=== PATIENT | male | born 1940 | race Caucasian/White ===

== ENCOUNTER → 2020-09-01 09:48 | Outpatient (BNVA) | payer MEDICARE, SELFPAY | PROVIDERS: PCP Internal Medicine; Referring Provider Internal Medicine; Visit Provider Internal Medicine | DX: I63.40 Cerebral infarction due to embolism of unspecified cerebral artery (principal); I25.10 Atherosclerotic heart disease of native coronary artery without angina pectoris; I10 Essential (primary) hypertension; E78.5 Hyperlipidemia, unspecified; Z87.891 Personal history of nicotine dependence; Z79.82 Long term (current) use of aspirin; Z79.899 Other long term (current) drug therapy | CPT/HCPCS: 93005; 99202 ==

== ENCOUNTER → 2020-09-22 13:08 | Outpatient (REF) | payer MEDICARE, SELFPAY ==
--- NOTE | 2020-09-22 13:04 | HM_ITS ---
PROCEDURE PERFORMED: Cardiac event monitoring for 30 days. INDICATION: Cerebral infarction. REQUESTING PHYSICIAN: Dr. Barajas. FINDINGS: In the monitoring period of 30 days between 09/22/2020 to 10/22/2020, the underlying rhythm was sinus. Baseline heart rate was 70 beats per minute and normal sinus rhythm. There is very rare atrial ectopy - only a couple over 30 days, but otherwise, no atrial arrhythmias. No evidence of any atrial fibrillation. CONCLUSION: This study shows underlying sinus rhythm only and does not show any atrial fibrillation or flutter. Juan David Barajas MD HS/MODL / [id number]
== END ==
LOC: HO.CARD 13:08
PROVIDERS: PCP Internal Medicine; Visit Provider Internal Medicine
DX: I63.9 Cerebral infarction, unspecified (principal)
CPT/HCPCS: 93270

== ENCOUNTER → 2020-10-29 12:41 | Outpatient (BNVA) | payer MEDICARE, SELFPAY | PROVIDERS: PCP Internal Medicine; Visit Provider Internal Medicine | DX: I63.40 Cerebral infarction due to embolism of unspecified cerebral artery (principal); I25.10 Atherosclerotic heart disease of native coronary artery without angina pectoris; I10 Essential (primary) hypertension; E78.5 Hyperlipidemia, unspecified | CPT/HCPCS: 99212 ==

== ENCOUNTER → 2021-01-25 14:10 | Outpatient (BNVA) | payer MEDICARE, SELFPAY | PROVIDERS: PCP Internal Medicine; Visit Provider Internal Medicine | DX: I63.40 Cerebral infarction due to embolism of unspecified cerebral artery (principal); I25.10 Atherosclerotic heart disease of native coronary artery without angina pectoris; I10 Essential (primary) hypertension; E78.5 Hyperlipidemia, unspecified | CPT/HCPCS: 99212 ==

== ENCOUNTER 2021-05-25 14:10 | Outpatient (REF) | payer MEDICARE, SELFPAY ==
--- NOTE | ~2021-05-25 | CT_ITS ---
CT ANGIOGRAM NECK CLINICAL INFORMATION: Transient Monocular blindness. COMPARISON: None available. TECHNIQUE: Test bolus sequences followed by intravenous administration 70 mL of Omnipaque 350. Helical imaging was performed in the axial plane from the thoracic inlet to the skull vertex. Delayed postcontrast imaging of the head was also performed. The data was processed at the rad technologist workstation for generation of MIP sequences. Angled MIPs and volume rendered reformatted images were also generated at an offline 3D workstation under concurrent supervision. Stenoses are assessed in accordance with NASCET criteria unless otherwise indicated. This CT examination was performed using dose optimization techniques as appropriate, variously including the following: *Automated exposure control *Adjustment of mA and/or kV according to patient size (this includes techniques or standardized protocols for targeted exams where dose is matched to indication/reason for exam; i.e. extremities or head) *Use of iterative reconstruction technique FINDINGS: BRAIN: There is a chronic infarct involving the right frontal lobe and right basal ganglia and the right MCA territory. There are chronic bilateral cerebellar infarcts. No definite superimposed acute infarcts. [There is no intracranial hemorrhage, hydrocephalus, extra-axial surface collection, midline shift, or other herniation pattern. Nice to white matter differentiation is diffusely maintained without evidence of an evolved acute territorial infarct. The basilar cisterns are preserved. No significant soft tissue abnormality. No acute osseous abnormality. The paranasal sinuses and the mastoid air cells are well aerated.] CERVICAL SOFT TISSUES AND LUNG APICES: There is multilevel cervical spondylosis. Imaged upper lungs are clear. No significant soft tissue findings within the neck. NECK CTA: [There is a classic 3 vessel configuration of the aortic arch. Proximal arch vessels are non-stenotic. Left vertebral artery is dominant. No significant ostial stenosis is visualized on either side. Both vertebral arteries are widely patent throughout their extracranial cervical course. Both common carotid arteries are normal in course and caliber.] Atherosclerotic calcification involving the carotid bifurcations bilaterally resulting in less than 50% stenoses of the proximal internal carotid arteries on both sides. BRAIN CTA: Atherosclerotic calcification throughout the carotid siphons bilaterally without significant stenosis. No focal flow-limiting stenosis nor discrete proximal large artery occlusion. No aneurysm. Timing of the contrast bolus allows assessment of the major dural venous sinuses, which all opacify normally] CT/CT angio head neck IMPRESSION: - No acute intracranial findings. Chronic right MCA territory infarct and chronic bilateral cerebellar infarcts. - No significant arterial stenoses and no acute arterial occlusions within the head or neck.
[2021-05-25] MEDS: iohexoL 350 MG/ML 100 ML INFUS..BTL IV (15:13)
== END 2021-05-25 14:11 | disposition home or self-care (01) ==
LOC: HO.CT 14:10
PROVIDERS: PCP Internal Medicine; Visit Provider Psychiatry & Neurology Neurology
DX: H53.129 Transient visual loss, unspecified eye (principal)
CPT/HCPCS: 70496; 70498; Q9967

== ENCOUNTER → 2021-07-28 13:58 | Outpatient (BNVA) | payer MEDICARE, SELFPAY | PROVIDERS: PCP Internal Medicine; Visit Provider Internal Medicine | DX: I63.40 Cerebral infarction due to embolism of unspecified cerebral artery (principal); I25.10 Atherosclerotic heart disease of native coronary artery without angina pectoris; I10 Essential (primary) hypertension; E78.5 Hyperlipidemia, unspecified | CPT/HCPCS: 99212 ==

== ENCOUNTER → 2022-01-12 13:55 | Outpatient (BNVA) | payer MEDICARE, SELFPAY | PROVIDERS: PCP Internal Medicine; Visit Provider Internal Medicine | DX: I63.40 Cerebral infarction due to embolism of unspecified cerebral artery (principal); I25.10 Atherosclerotic heart disease of native coronary artery without angina pectoris; I10 Essential (primary) hypertension; E78.5 Hyperlipidemia, unspecified | CPT/HCPCS: 93005; 99212 ==

== ENCOUNTER → 2023-02-23 13:27 | Outpatient (BNVA) | payer MEDICARE, SELFPAY | PROVIDERS: PCP Internal Medicine; Referring Provider Internal Medicine; Visit Provider Internal Medicine | DX: I63.40 Cerebral infarction due to embolism of unspecified cerebral artery (principal); I25.10 Atherosclerotic heart disease of native coronary artery without angina pectoris; I10 Essential (primary) hypertension; E78.5 Hyperlipidemia, unspecified | CPT/HCPCS: 93005; 99212 ==

== ENCOUNTER 2024-02-22 13:36 | Outpatient (AMB) | payer MEDICARE, SELFPAY ==
[2024-02-22 13:43] VITALS: BP 130/70; PULSE 61; BMI 21.4
--- NOTE | 2024-02-22 13:43 | MHC.OFFVIS ---
Vital Signs 02/22/24 13:43 Height 6 ft 1 in Weight 162 lb 4.163 oz BMI 21.4 BP 130/70 Blood Pressure Location Lt brachial Position Sitting Pulse 61 Intake Visit Reasons: 1 yr f/up Body Care Manager Required: No Accompanied by: Daughter Allergies No Known Allergies Allergy (Verified 02/23/23 13:35) Medication List - Last Reconciled 02/22/24 by Juan David Barajas MD amitriptyline 50 mg PO BEDTIME apixaban (Eliquis) 5 mg PO BID atorvastatin 80 mg PO DAILY cholecalciferol (vitamin D3) 50 mcg PO DAILY fenofibrate 160 mg PO DAILY finasteride 5 mg PO DAILY fcammhuwxkt-naxpgnowz-awxsnizu 100-62.5-25 mcg inhalation levalbuterol tartrate 45 mcg/actuation 2 puffs PO Q6H PRN metoprolol succinate ER 50 mg PO DAILY nitroglycerin 0.4 mg sublingual Q5M PRN HPI Comments Details: Ryan returns for follow-up. 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 He also has a history of coronary disease. In 2009, he underwent cardiac catheterization stenting of RCA with bare metal stent. In 2010, drug-eluting stents to LAD. He has been essentially free of angina for a long time. In 2019, he was admitted to [facility] with complaints of left-sided weakness when he was working on a ladder. Subsequently taken to [facility] where he was diagnosed to have a stroke with middle cerebral artery infarction. Mostly recovered from that. There is also a remote history of TIA with right-sided weakness that happened many years ago prior to this stroke. Then he was referred to us for evaluation of cardioembolic sources of stroke. After long discussion, he was put on anticoagulation that he is tolerating well. Since last seen, no new issues. No concerns. No cardiac symptoms whatsoever. 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 Mother No problems noted. Social History Alcohol intake: current Alcohol intake frequency: a few times a month Patient Tobacco Use Status: Former Tobacco user Quit Date: 1989 Review of Systems Const Denies chills, Denies fatigue, Denies fever(s), Denies frequent falls, Denies weakness, Denies weight gain and Denies weight loss ENT Denies dizziness Card Denies chest pain, Denies leg edema, Denies lightheadedness, Denies palpitations, Denies dyspnea and Denies dyspnea on exertion Resp Denies cough, Denies dyspnea and Denies dyspnea on exertion GI Denies hematochezia Musc Denies abnormal gait, Denies muscle weakness, Denies numbness, Denies radiating pain into limb and Denies tingling Neuro Denies abnormal gait, Denies dizziness, Denies frequent falls, Denies numbness, Denies tingling and Denies weakness Endo Denies fatigue and Denies palpitations Physical Exam Vital Signs: Last Vital Signs Pulse 61 02/22/24 13:43 BP 130/70 02/22/24 13:43 BMI result Body Mass Index 21.4 Const General: comfortable and no acute distress Orientation/consciousness: patient oriented x3 HEENT Other: Unremarkable Head: Yes normal to inspection Neck Neck: Yes normal visual inspection Chest Chest palpation & inspection: normal inspection of the chest Resp Auscultation: clear to auscultation bilaterally Cardio Palpation: normal PMI Heart sounds: S1 normal heart sound present, S2 normal heart sound present, no gallops, Murmur heart sound present systolic II/ and no rubs GI Palpation (GI): Soft to palpation Back/Spine/Pelvis Other: unremarkable Skin General skin exam: no rashes or lesions noted Neuro General: patient oriented x3 Extrem General: Yes normal to inspection Psych Mental Status: mental status grossly normal Office Procedures EKG Details: EKG with sinus rhythm at 61/Min; can not exclude old inferior infarct; premature atrial contractions; [place] [id number], Complete Assessment & Plan Assessment & Plan (1) Cerebrovascular accident, embolic: Code(s): I63.9 - Cerebral infarction, unspecified Category: Medical Qualifiers: Precerebral and cerebral artery: unspecified cerebral artery Qualified Code(s): I63.40 - Cerebral infarction due to embolism of unspecified cerebral artery (2) Atherosclerotic cardiovascular disease: Code(s): I25.10 - Atherosclerotic heart disease of [place] coronary artery without angina pectoris Category: Medical (3) Essential hypertension: Code(s): I10 - Essential (primary) hypertension Category: Medical (4) Other and unspecified hyperlipidemia: Code(s): E78.5 - Hyperlipidemia, unspecified Category: Medical Plan Pertinent studies reviewed. MRI of the brain with acute right MCA infarct. Chronic infarcts in the right basal ganglia and leo radiata as well as bilateral cerebellar hemispheres. No significant disease in the carotids. Echocardiogram with normal LVEF 60-65% no right to left shunting on bubble, mildly dilated aortic root but otherwise unremarkable. 30 day event monitor without any obvious atrial fibrillation. Cardiac source of emboli could be related to atrial fibrillation versus aortic atheroma. He is on empiric anticoagulation for possibly atrial fibrillation. Overall, cardiovascular status seems stable. Continue the current regimen of beta-blockers, statins. If any ongoing concerns he will contact us. Otherwise follow-up in 1 year. Also discussed with daughter. Orders: Orders CA echo transthoracic complete 1 Year I25.10 - Atherosclerotic heart disease of [place] coronary artery without angina pectoris Coding Level of Care Code Est Pt Level 4 (73070) Diagnoses Cerebrovascular accident (CVA) due to embolism of cerebral artery I63.40 Precerebral and cerebral artery: unspecified cerebral artery Atherosclerotic cardiovascular disease I25.10 Essential hypertension I10 Other and unspecified hyperlipidemia E78.5 CPT Codes EKG - CPT: 51381-[id number], Complete ([id number])
== END 2024-02-22 14:08 | disposition home or self-care (01) ==
LOC: HO.HCS 13:37
PROVIDERS: Visit Provider Internal Medicine
DX: I63.40 Cerebral infarction due to embolism of unspecified cerebral artery (principal); I25.10 Atherosclerotic heart disease of native coronary artery without angina pectoris; I10 Essential (primary) hypertension; E78.5 Hyperlipidemia, unspecified
CPT/HCPCS: 93010; 99214

== ENCOUNTER → 2024-02-22 13:36 | Outpatient (BNVA) | payer MEDICARE, SELFPAY | PROVIDERS: Visit Provider Internal Medicine | DX: I63.40 Cerebral infarction due to embolism of unspecified cerebral artery (principal); I25.10 Atherosclerotic heart disease of native coronary artery without angina pectoris; I10 Essential (primary) hypertension; E78.5 Hyperlipidemia, unspecified | CPT/HCPCS: 93005; 99212 ==

== ENCOUNTER → 2025-02-26 13:48 | Outpatient (REF) | payer MEDICARE, SELFPAY ==
--- NOTE | 2025-02-26 13:51 | CA_ITS ---
Transthoracic Echocardiogram Patient (Last, First, Middle): Ryan Ramirez, Gender: Male Date of : 1940 Age: 84 Procedure Date: 02/26/2025 Procedure Type: Transthoracic Echocardiogram Location: OP Height: 185.42 cm Weight: 73.48 kg BSA: 1.97 m2 Heart Rate: 80 bpm BP: 130 / 70 mmHg Line Worker: TO Referring MD: Juan David Barajas MD Chute Tapper: Geronimo Rivera MD Symptoms: I25.10 - Atherosclerotic heart disease of [place] coronary artery without... Study Quality: Technically Difficult ECG Rhythm: Sinus Conclusions: - 1. Normal LV ejection fraction of 60-65% with impaired relaxation filling pattern 2. Mildly dilated left atrium 3. Mild aortic stenosis 4. Mildly dilated ascending aorta at 3.9 cm Findings Left Ventricle Normal left ventricular size, thickness, and systolic function. The visually estimated ejection fraction is between 60-65%. Spectral Doppler is indicative of an impaired relaxation filling pattern. E/E prime ratio is between 8 and 15 consistent with indeterminate filling pressures. Wall Motion Rest Echo Findings The mid inferior segment is hypokinetic. The basal inferior segment is akinetic. All other scored wall segments showed normal motion. Right Ventricle Normal right ventricular cavity size and systolic function. Atria The left atrium is mildly dilated. Interatrial shunt cannot be excluded. The right atrium was not well visualized. Aortic Valve The aortic valve was not well visualized. There is moderate calcification of the aortic valve. There is mild aortic valve stenosis. There is no aortic valve regurgitation. Mitral Valve There is mild anterior and posterior mitral leaflet thickening. There is trace mitral valve regurgitation. There is no mitral valve stenosis. Pulmonic Valve The pulmonic valve was not well visualized. Tricuspid Valve The tricuspid valve was not well visualized. Tricuspid regurgitation envelope is inadequate for calculation of right ventricular systolic pressure. Normal right atrial pressure. Great Vessels The aorta was not well visualized. The pulmonary artery was not well visualized. Venous The inferior vena cava is normal in size. Pericardium/Pleural The pericardium was not well visualized. Prior Study Comparison No prior study available for comparison. Measurements 2D Linear Measurements IVSd: 1.10 0.6-0.9/0.6-1.0 cm LVIDd: 4.71 3.9-5.3/4.2-5.9 cm LVIDd Index: 2.39 2.4-3.2/2.2-3.1 cm/m2 LVIDs: 3.11 2.0-3.6 cm LVPWd: 0.92 0.7-1.1 cm LA Diam: 4.30 2.7-3.8/3.0-4.0 cm LAIDs Index: 2.18 1.5-2.3 cm/m2 LV Mass: 208.49 67-162/88-224 g LV Mass Index: 105.83 43-95/49-115 g/m2 LVOT Diam: 2.30 3.0+(-)1.3 cm 2D Systolic Function EF 4C: 59.10 >55% EF 2C: 61.50 >55% EF BiP: 60.20 >55% Mitral Valve MV VTI: 0.34 MV Pk Cordell: 1.51 MV Mn Cordell: 0.82 MV Pk Grad: 9.00 MV Mn Grad: 3.00 MV Pk E: 0.67 MV PK A: 1.17 MV Decel Time: 212.00 E/A: 0.60 E'Lateral: 7.29 E'Medial: 4.90 E/E' Med: 13.60 E/E' Lat: 9.20 PHT: 62.00 MVA PHT: 3.55 MVA Continuity: 2.56 Decel Mckean: 3.16 Aortic Valve AoV Pk Cordell: 2.39 AoV Mn Cordell: 1.53 AoV VTI: 0.50 AoV Pk Grad: 23.00 Aov Mn Grad: 11.00 DC Cont.VTI: 1.73 LVOT LVOT Pk Cordell: 0.90 LVOT Mn Cordell: 0.65 LVOT VTI: 0.21 LVOT Pk Grad: 3.00 LVOT Mn Grad: 2.00 LVOT Diam: 2.30 LVOT Area: 4.15 Diastolic Function MV Pk E: 0.67 MV Pk A: 1.17 E/A: 0.60 E'Medial: 4.90 E/E' Med: 13.60 E' Laterial: 7.29 E/E' Lat: 9.20 Right Ventricle TAPSE (mm): 23.00 TVS' Cordell: 14.40 Tricuspid Valve RA Press: 3.00 Great Vessels Aorta Sinus of Valsalva: 4.11 2.0-3.5 cm Ao Asc: 3.90 2.1-3.4 cm Updated in Other Vendor System with Status of Final Geronimo Rivera MD electronically signed on 02/26/2025 5:18:54 PM with status of Final
--- OUTSIDE RECORDS SUMMARY | 2025-02-26 15:03 | XMS_ITS | Patient Health Record ---
Author Organization [facility], Address [address] [place] [address] Care Team Providers Care Senior Merchandiser Name Role Phone Albaro Machuca Primary Care Provider RESULTS Component Value Reference Range Notes Lipid Panel-[id number] Reviewed date:11/14/2024 08:22:53 AM Interpretation: Performing Lab:[facility], [address] [facility], Phone - [phone], Director - MDJodry Notes/Report: Cholesterol, Total 115 100-199 mg/dL Triglycerides 66 0-149 mg/dL HDL Cholesterol 32 >39 mg/dL VLDL Cholesterol Peter 14 5-40 mg/dL LDL Chol Calc ([facility]) 69 0-99 mg/dL LDL Calc Comment: Comp. Metabolic Panel [id number] Reviewed date:11/14/2024 08:22:53 AM Interpretation: Performing Lab:[facility], [address] [facility], Phone - [phone], Director - MDAmadeo Notes/Report: Glucose 86 70-99 mg/dL BUN 21 8-27 mg/dL Creatinine 1.18 0.76-1.27 mg/dL eGFR 62 >59 mL/min/1.73 BUN/Creatinine Ratio 18 10-24 Sodium 144 134-144 mmol/L Potassium 4.5 3.5-5.2 mmol/L Chloride 107 96-106 mmol/L Carbon Dioxide, Total 22 20-29 mmol/L Calcium 10.0 8.6-10.2 mg/dL Protein, Total 7.1 6.0-8.5 g/dL Albumin 4.5 3.7-4.7 g/dL Globulin, Total 2.6 1.5-4.5 g/dL Bilirubin, Total 0.9 0.0-1.2 mg/dL Alkaline Phosphatase 41 44-121 IU/L AST (SGOT) 30 0-40 IU/L [id number] Reviewed date:11/14/2024 08:22:53 AM Interpretation: Performing Lab:[facility], [address], [place], Phone - [phone], Director - Slime Notes/Report: NT-proBNP 246 0-486 pg/mL The following cut-points have been suggested for the use of proBNP for the diagnostic evaluation of heart failure (HF) in patients with acute dyspnea: . Modality Age Optimal Cut (years) Point Diagnosis (rule in HF) <50 450 pg/mL 50 - 75 900 pg/mL >75 1800 pg/mL Exclusion (rule out HF) Age independent 300 pg/mL REASON FOR REFERRAL No Information MEDICATIONS Medication SIG (Take, Route, Frequency, Duration) Notes Start Date End Date Status Eliquis 5 MG as directed Orally Active Metoprolol Succinate ER 50 MG TAKE 1 TABLET BY MOUTH EVERY DAY Active Eliquis 5 MG TAKE 1 TABLET BY MICHAEL TH TWICE A DAY FOR 30 DAYS for 90 Active Nitroglycerin 0.4 MG 1 tablet under the tongue and allow to dissolve as needed Sublingual every 0 hrs for 30 days Active Aspir-81 81 MG 1 tablet Orally Once a day Active Megestrol Acetate 40 MG/ML 5 ml Orally T wice a day for 30 day(s) Active Amitriptyline HCl 50 MG TAKE 1 TABLET BY MOUTH EVERY DAY AT BEDTIME Active Finasteride 5 MG TAKE 1 TABLET BY MICHAEL TH EVERY DAY Active Topiramate 25 MG TAKE 1 TABLET BY MICHAEL TH EVERY DAY FOR 30 DAYS Active Trelegy Ellipta 100-62.5-25 MCG/INH INHALE 1 PUFF BY MOUTH EVERY DAY Active traZODone HCl 50 MG TAKE 1 AND 1/2 TABLE TS BY MOUTH AT BEDTIME NEEDED Active Xopenex HFA 45 MCG/ACT 2 puffs as needed every 6 hrs inhalation 30 days Inhalation every 4 hrs for 30 days Active traZODone HCl 150 MG TAKE 1 TABLET BY MO UTH EVERYDAY AT BEDTIME for 90 Active Amitriptyline HCl 50 MG TAKE 1 TABLET BY MOUTH EVERYDAY AT BEDTIME for 90 Active Atorvastatin Calcium 80 MG TAKE 1 TABLET BY MOUTH EVERY DAY FOR 30 DAYS for 90 Active Modafinil 100 MG 1 tablet in the morn ing Orally Once a day Active Finasteride 5 MG TAKE 1 TABLET BY MICHAEL TH EVERY DAY FOR 30 DAYS for 90 Active Atorvastatin Calcium 80 MG TAKE 1 TABLET BY MOUTH EVERY DAY Active Fluticasone Propionate 50 MCG/ACT SPRAY 1 SPRAY IN EACH NOSTRIL ONCE DAILY for 90 Active Fenofibrate 160 MG TAKE 1 TABLET BY MICHAEL TH EVERY DAY Active Metoprolol Succinate ER 50 MG TAKE 1 TABLET BY MOUTH EVERY DAY FOR 30 DAYS for 90 Active Fenofibrate 160 MG TAKE 1 TABLET BY MICHAEL TH EVERY DAY FOR 30 DAYS for 90 Active IMMUNIZATIONS Vaccine Route Administration Date Status Comme nts Zostavax IM Intramuscular 09/02/2013 Administered Pneumococcal Unknown 09/04/2007 Administered Pneumococcal IM Intramuscular 08/01/2017 Administered Influenza (Fluvirin) IM Intramuscular 09/02/2013 Administe red Influenza (Fluvirin) IM Intramuscular 09/03/2014 Administe red Influenza (Fluvirin) Unknown 07/13/2016 Administered Influenza (Flucelvax Quad) IM Intramuscular 08/01/2017 Adm inistered Influenza (Flucelvax Quad) Unknown 08/16/2024 Administe red *Influenza (Fluarix Quad) IM Intramuscular 07/30/2018 Admi nistered *Influenza (Fluarix Quad) IM Intramuscular 07/24/2019 Admi nistered *Influenza (Fluarix Quad) IM Intramuscular 08/08/2020 Admi nistered *Influenza (Fluarix Quad) IM Intramuscular 08/02/2021 Admi nistered *Influenza (Fluarix Quad) IM Intramuscular 08/09/2022 Admi nistered *Influenza (Fluarix Quad) IM Intramuscular 08/17/2023 Admi nistered SOCIAL HISTORY Sex Assigned At : Social History Observation Description Sex Assigned At Unknown PROBLEMS Problem Type ICD Code Onset Dates Problem Status W/U Status Risk SNOMED Code Notes Problem TIA (transient ischemic attack) (435.9) Active confirmed Transient ische flavio attack (764832783) Problem Vitamin D deficiency (E55.9) Active confirmed 09972213 Problem Loss of appetite (R63.0) Active confirmed 73213762 Problem Primary insomnia (F51.01) Active confirmed 2621360 Problem Mixed hyperlipidemia (E78.2) Active confirmed 629207286 Problem Irritable bowel syndrome without diarrhea (K58.9) Active confirmed 34482202 Problem Essential hypertension (I10) Active confirmed Essential hypertension (72389170) Problem Gastroesophageal reflux disease without esophagitis (K21.9) Active confirmed Gastroesophagea l reflux disease without esophagitis (637688244) Problem Moderate persistent asthma without complication (J45.40) Active confirmed 506683816 Problem Chronic obstructive pulmonary disease, unspecified COPD type (J44.9) Active confirmed 52388344 Problem 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) Active confirmed 7113387879222 Problem Benign non-nodular prostatic hyperplasia with lower urinary tract symptoms (N40.1) Active confirmed 205195529 Problem Transient cerebral ischemia, unspecified transient cerebral ischemia type (G45.9) Active confirmed 651360749 Problem Type 2 diabetes mellitus without complication, unspecified oysterman insulin use status (E11.9) Active confirmed 34616656 Problem Hearing loss, unspecified hearing loss type, unspecified laterality (H91.90) Active confirmed 10922895 Problem Cerebrovascular accident (CVA) due to occlusion of right middle cerebral artery (I63.511) Active confirmed Cerebrovascular accident due to occlusion of right middle cerebral artery (disorder) (77715886336597585 ) VITAL SIGNS Heart Rate 80 /min 02/24/2025 Blood pressure diastolic 80 mm Hg 02/24/2025 Height 73 in 02/24/2025 Blood pressure systolic 120 mm Hg 02/24/2025 Weight 163 lbs 02/24/2025 BMI 21.50 kg/m2 02/24/2025 Encounters Encounter Location Date [facility] [address] [place] [address] 05/16/2024 Albaro Machuca Coronary artery dise ase involving tejon coronary artery of tejon heart without angina pectoris I25.10 ; Essential hypertension I10 ; Cerebrovascular accident (CVA) due to occlusion of right middle cerebral artery I63.511 ; Transient cerebral ischemia, unspecified transient cerebral ischemia type G45.9 ; Mixed hyperlipidemia E78.2 ; Moderate persistent asthma without complication J45.40 ; Benign non-nodular prostatic hyperplasia with lower urinary tract symptoms N40.1 ; Primary insomnia F51.01 ; Hearing loss, unspecified hearing loss type, unspecified laterality H91.90 and Fatigue, unspecified type R53.83 Albaro Machuca Md [address] [place] [id number] 05/16/2024 Albaro Machuca [facility], [address] [address] 05/30/2024 Albaro Machuca Coronary artery dise ase involving tejon coronary artery of tejon heart without angina pectoris I25.10 ; Essential hypertension I10 ; Cerebrovascular accident (CVA) due to occlusion of right middle cerebral artery I63.511 ; Transient cerebral ischemia, unspecified transient cerebral ischemia type G45.9 ; Mixed hyperlipidemia E78.2 ; Moderate persistent asthma without complication J45.40 ; Benign non-nodular prostatic hyperplasia with lower urinary tract symptoms N40.1 ; Primary insomnia F51.01 ; Hearing loss, unspecified hearing loss type, unspecified laterality H91.90 and Fatigue, unspecified type R53.[address] [address] 09/12/2024 Albaro Machuca Coronary artery dise ase involving tejon coronary artery of tejon heart without angina pectoris I25.10 ; Essential hypertension I10 ; Cerebrovascular accident (CVA) due to occlusion of right middle cerebral artery I63.511 ; Transient cerebral ischemia, unspecified transient cerebral ischemia type G45.9 ; Mixed hyperlipidemia E78.2 ; Moderate persistent asthma without complication J45.40 ; Benign non-nodular prostatic hyperplasia with lower urinary tract symptoms N40.1 ; Hearing loss, unspecified hearing loss type, unspecified laterality H91.90 ; Fatigue, unspecified type R53.83 ; Primary insomnia F51.01 ; Loss of appetite R63.0 and Weight loss R63.[address] [address] 11/26/[address] [address] 11/26/2024 Albaro Machuca Coronary artery dise ase involving tejon coronary artery of tejon heart without angina pectoris I25.10 ; Essential hypertension I10 ; Cerebrovascular accident (CVA) due to occlusion of right middle cerebral artery I63.511 ; Transient cerebral ischemia, unspecified transient cerebral ischemia type G45.9 ; Mixed hyperlipidemia E78.2 ; Moderate persistent asthma without complication J45.40 ; Benign non-nodular prostatic hyperplasia with lower urinary tract symptoms N40.1 ; Hearing loss, unspecified hearing loss type, unspecified laterality H91.90 ; Fatigue, unspecified type R53.83 ; Primary insomnia F51.01 ; Loss of appetite R63.0 and Weight loss R63.[address] [address] 02/24/2025 Albaro Machuca Coronary artery dise ase involving tejon coronary artery of tejon heart without angina pectoris I25.10 ; Essential hypertension I10 ; Cerebrovascular accident (CVA) due to occlusion of right middle cerebral artery I63.511 ; Transient cerebral ischemia, unspecified transient cerebral ischemia type G45.9 ; Mixed hyperlipidemia E78.2 ; Moderate persistent asthma without complication J45.40 ; Benign non-nodular prostatic hyperplasia with lower urinary tract symptoms N40.1 ; Hearing loss, unspecified hearing loss type, unspecified laterality H91.90 ; Fatigue, unspecified type R53.83 ; Primary insomnia F51.01 ; Loss of appetite R63.0 and Weight loss R63.[address] [address] 02/25/2025 Albaro Machuca ASSESSMENTS Encounter Date Diagnosis Assessment Notes Treatment Notes Treatment Clinical Notes 05/16/2024 Coronary artery disease involving tejon coronary artery of tejon heart without angina pectoris (ICD-10 - I25.10) 05/16/2024 Essential hypertension (ICD-10 - I10) 09/12/2024 Coronary artery disease involving tejon coronary artery of tejon heart without angina pectoris (ICD-10 - I25.10) 11/26/2024 Coronary artery disease involving tejon coronary artery of tejon heart without angina pectoris (ICD-10 - I25.10) 05/30/2024 Coronary artery disease involving tejon coronary artery of tejon heart without angina pectoris (ICD-10 - I25.10) 02/24/2025 Coronary artery disease involving tejon coronary artery of tejon heart without angina pectoris (ICD-10 - I25.10) 05/30/2024 Essential hypertension (ICD-10 - I10) 05/16/2024 Cerebrovascular accident (CVA) due to occlusion of right middle cerebral artery (ICD-10 - I63.511) 09/12/2024 Cerebrovascular accident (CVA) due to occlusion of right middle cerebral artery (ICD-10 - I63.511) 02/24/2025 Essential hypertension (ICD-10 - I10) 11/26/2024 Essential hypertension (ICD-10 - I10) 09/12/2024 Essential hypertension (ICD-10 - I10) 02/24/2025 Cerebrovascular accident (CVA) due to occlusion of right middle cerebral artery (ICD-10 - I63.511) 11/26/2024 Cerebrovascular accident (CVA) due to occlusion of right middle cerebral artery (ICD-10 - I63.511) 05/30/2024 Cerebrovascular accident (CVA) due to occlusion of right middle cerebral artery (ICD-10 - I63.511) 11/26/2024 Transient cerebral ischemia, unspecified transient cerebral ischemia type (ICD-10 - G45.9) 05/16/2024 Transient cerebral ischemia, unspecified transient cerebral ischemia type (ICD-10 - G45.9) 02/24/2025 Transient cerebral ischemia, unspecified transient cerebral ischemia type (ICD-10 - G45.9) 05/30/2024 Transient cerebral ischemia, unspecified transient cerebral ischemia type (ICD-10 - G45.9) 09/12/2024 Transient cerebral ischemia, unspecified transient cerebral ischemia type (ICD-10 - G45.9) 02/24/2025 Mixed hyperlipidemia (ICD-10 - E78.2) 05/16/2024 Mixed hyperlipidemia (ICD-10 - E78.2) 11/26/2024 Mixed hyperlipidemia (ICD-10 - E78.2) 05/30/2024 Mixed hyperlipidemia (ICD-10 - E78.2) 09/12/2024 Mixed hyperlipidemia (ICD-10 - E78.2) 11/26/2024 Moderate persistent asthma without complication (ICD-10 - J45.40) 05/16/2024 Moderate persistent asthma without complication (ICD-10 - J45.40) 02/24/2025 Moderate persistent asthma without complication (ICD-10 - J45.40) 09/12/2024 Moderate persistent asthma without complication (ICD-10 - J45.40) 05/30/2024 Moderate persistent asthma without complication (ICD-10 - J45.40) 05/16/2024 Benign non-nodular prostatic hyperplasia with lower urinary tract symptoms (ICD-10 - N40.1) 02/24/2025 Benign non-nodular prostatic hyperplasia with lower urinary tract symptoms (ICD-10 - N40.1) 05/30/2024 Benign non-nodular prostatic hyperplasia with lower urinary tract symptoms (ICD-10 - N40.1) 11/26/2024 Benign non-nodular prostatic hyperplasia with lower urinary tract symptoms (ICD-10 - N40.1) 09/12/2024 Benign non-nodular prostatic hyperplasia with lower urinary tract symptoms (ICD-10 - N40.1) 05/16/2024 Primary insomnia (ICD-10 - F51.01) 05/30/2024 Primary insomnia (ICD-10 - F51.01) 02/24/2025 Hearing loss, unspecified hearing loss type, unspecified laterality (ICD-10 - H91.90) 11/26/2024 Hearing loss, unspecified hearing loss type, unspecified laterality (ICD-10 - H91.90) 09/12/2024 Hearing loss, unspecified hearing loss type, unspecified laterality (ICD-10 - H91.90) 05/16/2024 Hearing loss, unspecified hearing loss type, unspecified laterality (ICD-10 - H91.90) 05/30/2024 Hearing loss, unspecified hearing loss type, unspecified laterality (ICD-10 - H91.90) 09/12/2024 Fatigue, unspecified type (ICD-10 - R53.83) 11/26/2024 Fatigue, unspecified type (ICD-10 - R53.83) 02/24/2025 Fatigue, unspecified type (ICD-10 - R53.83) 05/16/2024 Fatigue, unspecified type (ICD-10 - R53.83) 05/30/2024 Fatigue, unspecified type (ICD-10 - R53.83) 09/12/2024 Primary insomnia (ICD-10 - F51.01) 11/26/2024 Primary insomnia (ICD-10 - F51.01) 02/24/2025 Primary insomnia (ICD-10 - F51.01) 09/12/2024 Loss of appetite (ICD-10 - R63.0) 11/26/2024 Loss of appetite (ICD-10 - R63.0) 02/24/2025 Loss of appetite (ICD-10 - R63.0) 11/26/2024 Weight loss (ICD-10 - R63.4) 02/24/2025 Weight loss (ICD-10 - R63.4) 09/12/2024 Weight loss (ICD-10 - R63.4) 05/16/2024 Other This chart has been transcribed by a computerized dictation system. There are likely to be multiple vocational director inaccuracies despite chart review. 05/30/2024 Other This chart has been transcribed by a computerized dictation system. There are likely to be multiple vocational director inaccuracies despite chart review. 09/12/2024 Other This chart has been transcribed by a computerized dictation system. There are likely to be multiple vocational director inaccuracies despite chart review. 11/26/2024 Other This chart has been transcribed by a computerized dictation system. There are likely to be multiple vocational director inaccuracies despite chart review. 02/24/2025 Other This chart has been transcribed by a computerized dictation system. There are likely to be multiple vocational director inaccuracies despite chart review. PLAN OF TREATMENT Pending Test Test Name Order Date Audiometry 11/03/2020 *EKG 11/19/2012 *SPIROMETRY 11/19/2012 *SPIROMETRY 03/02/2015 *SPIROMETRY 04/12/2017 *SPIROMETRY 10/11/2018 *SPIROMETRY 07/24/2019 EAR IRRIGATION 04/09/2018 PSA 07/11/2017 PSA 09/03/2014 HEMOGLOBIN A1C 04/12/2016 HEMOGLOBIN A1C 10/11/2016 HEMOGLOBIN A1C 01/09/2017 HEMOGLOBIN A1C 07/13/2016 HEMOGLOBIN A1C 10/10/2017 HEMOGLOBIN A1C 01/08/2018 HEMOGLOBIN A1C 07/11/2017 COMPREHENSIVE METABOLIC PANL 01/08/2018 COMPREHENSIVE METABOLIC PANL 07/13/2016 COMPREHENSIVE METABOLIC PANL 09/03/2014 COMPREHENSIVE METABOLIC PANL 07/11/2017 LIPID PANEL 01/09/2017 LIPID PANEL 03/02/2015 LIPID PANEL 10/07/2015 LIPID PANEL 04/12/2016 LIPID PANEL 09/03/2014 LIPID PANEL 07/13/2016 LIPID PANEL 07/11/2017 LIPID PANEL 01/08/2018 HEPATIC FUNCTION PANEL 04/12/2016 HEPATIC FUNCTION PANEL 10/07/2015 HEPATIC FUNCTION PANEL 03/02/2015 HEPATIC FUNCTION PANEL 01/09/2017 THYROID PANEL 07/11/2017 THYROID PANEL 09/03/2014 URINARY MICROALBUMIN 07/11/2017 25OH VITAMIN D 07/11/2017 25OH VITAMIN D 09/03/2014 COMPLETE CBC WITH DIFF 09/03/2014 COMPLETE CBC WITH DIFF 07/11/2017 EHRLICHIA AB 05/19/2021 BABESIA AB 05/19/2021 URINE DIPSTICK 09/03/2014 COMPLETE URINALYSIS 07/11/2017 25OH VITAMIN D 08/17/2023 B-TYPE NATRIURETIC PEPTIDE (BNP) 023 CBC (COMPLETE BLOOD COUNT) WITH DIFF COMPREHENSIVE METABOLIC PANEL 08/17/2023 HEPATIC FUNCTION PANEL 01/31/2022 HEPATIC FUNCTION PANEL 08/09/2022 HEPATIC FUNCTION PANEL 02/20/2023 LIPID PANEL 02/20/2023 LIPID PANEL 08/09/2022 LIPID PANEL 01/31/2022 LIPID PANEL 08/17/2023 PSA, SCREEN 08/17/2023 THYROID PANEL (TSH, FT4) 08/17/2023 URINALYSIS, COMPLETE 08/17/2023 Lipid Panel-[id number] 02/24/2025 Comp. Metabolic Panel [id number] 2024 [id number] 02/24/2025 CBC with Diff, Platelet, [id number] 01/29 Next Appt Details Provider Name:Albaro barrera, 05/27/2025 11:15:00 AM, [address] [place] [address], [phone], Insurance Providers Payer Name Payer Address Payer Phone Subscriber Number Group Number Insured Name Patient Relationship to Insured Coverage Start Date Coverage End Date [facility] [address] [place] [address] [id number] Ryan Ramirez Self - patient is the insured MEDICAL (GENERAL) HISTORY Medical History History ICD Code Bronchial Asthma IBS Hyperlipidemia BPH Raynaud's CAD TIA Recurrent Surgical History Surgery Date(Month/Year) Angioplasty with stenting Hospitalization History Reason Date(Month/Year) For above procedure and control of chron ic medical conditions
--- OUTSIDE RECORDS SUMMARY | 2025-02-26 15:03 | XMS_ITS ---
Author Organization [facility], Address [address] [place] [address] Care Team Providers Care Exterior Work Helper Name Role Phone Caitlynholly Albaro Primary Care Provider REASON FOR VISIT (IN OFFICE), Follow Up MEDICATIONS Medication SIG (Take, Route, Frequency, Duration) Notes Start Date End Date Status Metoprolol Succinate ER 50 MG TAKE 1 TABLET BY MOUTH EVERY DAY Active Eliquis 5 MG TAKE 1 TABLET BY MICHAEL TH TWICE A DAY FOR 30 DAYS for 90 Active Nitroglycerin 0.4 MG 1 tablet under the tongue and allow to dissolve as needed Sublingual every 0 hrs for 30 days Active Trelegy Ellipta 100-62.5-25 MCG/INH INHALE 1 PUFF BY MOUTH EVERY DAY Active Xopenex HFA 45 MCG/ACT 2 puffs as needed every 6 hrs inhalation 30 days Inhalation every 4 hrs for 30 days Active Modafinil 100 MG 1 tablet in the morn ing Orally Once a day Active Atorvastatin Calcium 80 MG TAKE 1 TABLET BY MOUTH EVERY DAY Active Fenofibrate 160 MG TAKE 1 TABLET BY MICHAEL TH EVERY DAY Active Aspir-81 81 MG 1 tablet Orally Once a day Active Megestrol Acetate 40 MG/ML 5 ml Orally T wice a day for 30 day(s) Active Finasteride 5 MG TAKE 1 TABLET BY MICHAEL TH EVERY DAY FOR 30 DAYS for 90 Active Fluticasone Propionate 50 MCG/ACT SPRAY 1 SPRAY IN EACH NOSTRIL ONCE DAILY for 90 Active Metoprolol Succinate ER 50 MG TAKE 1 TABLET BY MOUTH EVERY DAY FOR 30 DAYS for 90 Active Amitriptyline HCl 50 MG TAKE 1 TABLET BY MOUTH EVERY DAY AT BEDTIME Active Finasteride 5 MG TAKE 1 TABLET BY MICHAEL TH EVERY DAY Active traZODone HCl 150 MG TAKE 1 TABLET BY MO UTH EVERYDAY AT BEDTIME for 90 Active Fenofibrate 160 MG TAKE 1 TABLET BY MICHAEL TH EVERY DAY FOR 30 DAYS for 90 Active Eliquis 5 MG as directed Orally Active Topiramate 25 MG TAKE 1 TABLET BY MICHAEL TH EVERY DAY FOR 30 DAYS Active traZODone HCl 50 MG TAKE 1 AND 1/2 TABLE TS BY MOUTH AT BEDTIME NEEDED Active Amitriptyline HCl 50 MG TAKE 1 TABLET BY MOUTH EVERYDAY AT BEDTIME for 90 Active Atorvastatin Calcium 80 MG TAKE 1 TABLET BY MOUTH EVERY DAY FOR 30 DAYS for 90 Active VITAL SIGNS Height 73 in 02/24/2025 Weight 163 lbs 02/24/2025 BMI 21.50 kg/m2 02/24/2025 Blood pressure systolic 120 mm Hg 02/25/20 25 Blood pressure diastolic 80 mm Hg 025 Heart Rate 80 /min 02/24/2025 Encounters Encounter Location Date Provider Diagnosis [email or web address] [address] 02/24/2025 Albaro Machuca Coronary artery dise ase involving kn[place] coronary artery of [place] heart without angina pectoris I25.10 ; Essential [...] of appetite R63.0 and Weight loss R63.4 ASSESSMENTS Encounter Date Diagnosis Assessment Notes Treatment Notes Treatment Clinical Notes 02/24/2025 Coronary artery disease involving kn[place] coronary artery of kn[place] heart without angina pectoris (ICD-10 - I25.10) 02/24/2025 Essential hypertension (ICD-10 - I10) 02/24/2025 Cerebrovascular accident (CVA) due to occlusion of right middle cerebral artery (ICD-10 - I63.511) 02/24/2025 Transient cerebral ischemia, unspecified transient cerebral ischemia type (ICD-10 - G45.9) 02/24/2025 Mixed hyperlipidemia (ICD-10 - E78.2) 02/24/2025 Moderate persistent asthma without complication (ICD-10 - J45.40) 02/24/2025 Benign non-nodular prostatic hyperplasia with lower urinary tract symptoms (ICD-10 - N40.1) 02/24/2025 Hearing loss, unspecified hearing loss type, unspecified laterality (ICD-10 - H91.90) 02/24/2025 Fatigue, unspecified type (ICD-10 - R53.83) 02/24/2025 Primary insomnia (ICD-10 - F51.01) 02/24/2025 Loss of appetite (ICD-10 - R63.0) 02/24/2025 Weight loss (ICD-10 - R63.4) 02/24/2025 Other This chart has been transcribed by a computerized dictation system. There are likely to be multiple furnace caretaker inaccuracies despite chart review. PLAN OF TREATMENT Medication Medication Name Sig Start Date Stop Date Notes Metoprolol Succinate ER 50 MG TAKE 1 TAB LET BY MOUTH EVERY DAY Nitroglycerin 0.4 MG 1 tablet under the tongue and allow to dissolve as needed Sublingual every 0 hrs for 30 days Trelegy Ellipta 100-62.5-25 MCG/INH INHALE 1 PUFF BY MOUTH EVERY DAY Xopenex HFA 45 MCG/ACT 2 puffs as needed every 6 hrs inhalation 30 days Inhalation every 4 hrs for 30 days Modafinil 100 MG 1 tablet in the morn ing Orally Once a day Atorvastatin Calcium 80 MG TAKE 1 TABLET BY MOUTH EVERY DAY Fenofibrate 160 MG TAKE 1 TABLET BY MICHAEL TH EVERY DAY Aspir-81 81 MG 1 tablet Orally Once a day Megestrol Acetate 40 MG/ML 5 ml Orally T wice a day for 30 day(s) Amitriptyline HCl 50 MG TAKE 1 TABLET BY MOUTH EVERY DAY AT BEDTIME Finasteride 5 MG TAKE 1 TABLET BY MICHAEL TH EVERY DAY Eliquis 5 MG as directed Orally Topiramate 25 MG TAKE 1 TABLET BY MICHAEL TH EVERY DAY FOR 30 DAYS traZODone HCl 50 MG TAKE 1 AND 1/2 TABLE TS BY MOUTH AT BEDTIME NEEDED Treatment Notes Assessment Notes Other This chart has been transcribed by a computerized dictation system. There are likely to be multiple furnace caretaker inaccuracies despite chart review. Pending Test Test Name Order Date Lipid Panel-[id number] 02/24/2025 Comp. Metabolic Panel [id number] 2024 [id number] 02/24/2025 CBC with Diff, Platelet, [id number] 01/29 Next Appt Details Follow Up: 3 Months, Reason: Follow-up Provider Name:Albaro barrera, 05/27/2025 11:15:00 AM, [address] [place] [address], [phone], Progress Notes * Examination Category Sub-Category Detail Notes General Examination GENERAL APPEARANCE: in no ac eyak distress, well developed, well nourished HEAD: normocephalic, atrau matic EYES: pupils equal, round, reactive to light and accommodation, no nystagmus no evidence of papilledema THROAT: clear, no erythema, uvula midline, no exudate NECK/THYROID: neck supple, no thyr omegaly, trachea midline, no carotid bruit HEART: no murmurs, regular rate and rhythm, S1, S2 normal LUNGS: clear to auscultatio n bilaterally ABDOMEN: soft, nontender, non distended, no organomegaly , bowel sounds present NEUROLOGIC: alert and oriented x 3, nonfocal, SKIN: no suspicious lesion s, warm and dry EXTREMITIES: no clubbing, cyanosi s, or edema PERIPHERAL PULSES: normal, 2+ throughou t MUSCULOSKELETAL: normal, full range o f motion LYMPH NODES: no cervical, axillar y, supraclavicular or inguinal adenopathy PSYCH: cognitive function i ntact, mood/affect full range ORAL CAVITY: mucosa moist, no les ions, palate normal, tongue in midline, well papillated
--- OUTSIDE RECORDS SUMMARY | 2025-02-26 15:03 | XMS_ITS | Encounter Summary ---
Author Organization [facility] Address [address] [place] [address] Phone Care Team Providers Care Party Bus Driver Name Role Phone Albaro Machuca MD Primary Care Provider Reason for Referral * Speech Therapy (Routine) - Closed Specialty Diagnoses / Procedures Referred By Alessandra sanders Referred To Contact Speech Pathology System, Provider Not In, [facility] [address] [address] [facility] Parent [address] [place] [address] Referral ID Status Reason Start Date Expiration Date Visits Re quested Visits Authorized [id number] Closed 07/15/2020 07/15/2021 99 99 Encounter Details Date Type Department Care Team (Late st Contact Info) Description 07/15/2020 Transcribe Orders [facility] [address] [place] [address] Abdelrahman Machuca MD Social History Tobacco Use Types Packs/Day Years Used Date Smoking Tobacco: Never Assessed Sex and Gender Information Value Date Recorded Sex Assigned at Not on file Gender Identity Not on file Sexual Orientation Not on file documented as of this encounter Plan of Treatment Scheduled Referrals Name Type Priority Associated Diagnoses Order Schedule Ambulatory referral to [facility] Speech Language Pathology Outpatient Referral Routine Ordered: 07/15/2020 documented as of this encounter Visit Diagnoses Not on filedocumented in this encounter Care Teams Party Bus Driver Relationship Specialty Start Date End Date Albaro Machuca MD PCP - General Internal Medicine 07/15/20 documented as of this encounter Additional Source Comments The information contained in this document represents components of the legal health record. It is not the complete legal health record.[facility]
--- OUTSIDE RECORDS SUMMARY | 2025-02-26 15:03 | XMS_ITS ---
Author Organization [facility], Address [address] [place] [address] Care Team Providers Care Material Handler Name Role Phone Caitlynholly Albaro Primary Care Provider ALLERGIES No Known Allergies REASON FOR VISIT (IN OFFICE), Follow Up MEDICATIONS Medication SIG (Take, Route, Frequency, Duration) Notes Start Date End Date Status Nitroglycerin 0.4 MG 1 tablet under the tongue and allow to dissolve as needed Sublingual every 0 hrs for 30 days Active Aspir-81 81 MG 1 tablet Orally Once a day Active Trelegy Ellipta 100-62.5-25 MCG/INH INHALE 1 PUFF BY MOUTH EVERY DAY Active Xopenex HFA 45 MCG/ACT 2 puffs as needed every 6 hrs inhalation 30 days Inhalation every 4 hrs for 30 days Active Metoprolol Succinate ER 50 MG TAKE 1 TABLET BY MOUTH EVERY DAY Active Megestrol Acetate 40 MG/ML 5 ml Orally T wice a day for 30 day(s) Active Modafinil 100 MG 1 tablet in the morn ing Orally Once a day Active Amitriptyline HCl 50 MG TAKE 1 TABLET BY MOUTH EVERYDAY AT BEDTIME for 90 Active traZODone HCl 150 MG TAKE 1 TABLET BY MO UT EVERYDAY AT BEDTIME for 90 Active Fenofibrate [...] BY MOUTH EVERY DAY AT BEDTIME Active Atorvastatin Calcium 80 MG TAKE 1 TABLET BY MOUTH EVERY DAY FOR 30 DAYS for 90 Active Eliquis 5 MG TAKE 1 TABLET BY MICHAEL TH TWICE A DAY FOR 30 DAYS for 90 Active Finasteride 5 MG TAKE 1 TABLET BY MICHAEL TH EVERY DAY Active Topiramate 25 MG TAKE 1 TABLET BY MICHAEL TH EVERY DAY FOR 30 DAYS Active traZODone HCl 50 MG TAKE 1 AND 1/2 TABLE TS BY MOUTH AT BEDTIME NEEDED Active Eliquis 5 MG as directed Orally Active VITAL SIGNS Height 73 in 11/26/2024 Weight 158 lbs 11/26/2024 BMI 20.84 kg/m2 11/26/2024 Blood pressure systolic 124 mm Hg 11/26/19 25 Blood pressure diastolic 78 mm Hg 025 Heart Rate 80 /min 11/26/2024 Encounters Encounter Location Date Provider Diagnosis [email or web address] [address] 11/26/2024 Albaro Machuca Coronary artery dise ase involving [place] coronary artery of [place] heart without angina pectoris I25.10 ; Essential [...] Assessment Notes Treatment Notes Treatment Clinical Notes 11/26/2024 Coronary artery disease involving [place] coronary artery of [place] heart without angina pectoris (ICD-10 - I25.10) 11/26/2024 Essential hypertension (ICD-10 - I10) 11/26/2024 Cerebrovascular accident (CVA) due to occlusion of right middle cerebral artery (ICD-10 - I63.511) 11/26/2024 Transient cerebral ischemia, unspecified transient cerebral ischemia type (ICD-10 - G45.9) 11/26/2024 Mixed hyperlipidemia (ICD-10 - E78.2) 11/26/2024 Moderate persistent asthma without complication (ICD-10 - J45.40) 11/26/2024 Benign non-nodular prostatic hyperplasia with lower urinary tract symptoms (ICD-10 - N40.1) 11/26/2024 Hearing loss, unspecified hearing loss type, unspecified laterality (ICD-10 - H91.90) 11/26/2024 Fatigue, unspecified type (ICD-10 - R53.83) 11/26/2024 Primary insomnia (ICD-10 - F51.01) 11/26/2024 Loss of appetite (ICD-10 - R63.0) 11/26/2024 Weight loss (ICD-10 - R63.4) 11/26/2024 Other This chart has been transcribed by a computerized dictation system. There are likely to be multiple potato grader inaccuracies despite chart review. PLAN OF TREATMENT Medication Medication Name Sig Start Date Stop Date Notes Nitroglycerin 0.4 MG 1 tablet under the tongue and allow to dissolve as needed Sublingual every 0 hrs for 30 days Aspir-81 81 MG 1 tablet Orally Once a day Trelegy Ellipta 100-62.5-25 MCG/INH INHALE 1 PUFF BY MOUTH EVERY DAY Xopenex HFA 45 MCG/ACT 2 puffs as needed every 6 hrs inhalation 30 days Inhalation every 4 hrs for 30 days Metoprolol Succinate ER 50 MG TAKE 1 TAB LET BY MOUTH EVERY DAY Megestrol Acetate 40 MG/ML 5 ml Orally T wice a day for 30 day(s) Modafinil 100 MG 1 tablet in the morn ing Orally Once a day Atorvastatin Calcium 80 MG TAKE 1 TABLET BY MOUTH EVERY DAY Fenofibrate 160 MG TAKE 1 TABLET BY MICHAEL TH EVERY DAY Amitriptyline HCl 50 MG TAKE 1 TABLET BY MOUTH EVERY DAY AT BEDTIME Finasteride 5 MG TAKE 1 TABLET BY MICHAEL TH EVERY DAY Topiramate 25 MG TAKE 1 TABLET BY MICHAEL TH EVERY DAY FOR 30 DAYS traZODone HCl 50 MG TAKE 1 AND 1/2 TABLE TS BY MOUTH AT BEDTIME NEEDED Eliquis 5 MG as directed Orally Treatment Notes Assessment Notes Other This chart has been transcribed by a computerized dictation system. There are likely to be multiple potato grader inaccuracies despite chart review. Next Appt Details Follow Up: 3 Months, Reason: Follow-up Provider Name:Albaro barrera, 05/27/2025 11:15:00 AM, [address] [place] [address], [phone], Progress Notes * Examination Category Sub-Category Detail Notes General Examination GENERAL APPEARANCE: in no ac cantwell distress, well developed, well nourished HEAD: normocephalic, [...]
--- OUTSIDE RECORDS SUMMARY | 2025-02-26 15:03 | XMS_ITS | Clinical Summary ---
Author Organization [facility] Address [address] [place] [address] Phone Care Team Providers Care Motor Express Clerk Name Role Phone Albaro Machuca MD Primary Care Provider Social History Tobacco Use Types Packs/Day Years Used Date Smoking Tobacco: Never Assessed Education Answer Date Recorded Are you interested in more education? Not on felisa e 02/24/2023 Are you concerned about learning? Not on file 02/24/2023 No 02/24/2023 No 02/24/2023 Digital Access Answer Date Recorded No 03/25/2023 No 03/25/2023 No 03/25/2023 Reliable internet access at home? Not on file 03/25/2023 Device with a working camera? Not on file Sex and Gender Information Value Date Recorded Sex Assigned at Not on file Gender Identity Not on file Sexual Orientation Not on file Plan of Treatment Health Maintenance Due Date Last Done Comments Adult Td,Tdap Booster 1942 DEPRESSION SCREENING 1954 ZOSTER VACCINES (1 of 2) 1992 RSV VACCINE (1 - 1-dose 75+ series) 2017 PNEUMOCOCCAL VACCINES (50+ years) (2 of 2 - PCV) 08/01/2018 08/01/2017 INFLUENZA VACCINE (#1) 2024 , 07/24/2019, 07/30/2018, Additional history exists COVID-19 VACCINE (3 - season) 2024 12/26/2020, 12/05/2020 HEPATITIS A VACCINES Aged Out No long er eligible based on patient's age to complete this topic HIB VACCINES Aged Out No longer eligi ble based on patient's age to complete this topic MENINGOCOCCAL VACCINES (ACWY) Aged Out No longer eligible based on patient's age to complete this topic Medical Devices Not on file Care Teams Motor Express Clerk Relationship Specialty Start Date End Date Albaro Machuca MD PCP - General Internal Medicine 07/15/20 Additional Source Comments The information contained in this document represents components of the legal health record. It is not the complete legal health record.[facility]
--- OUTSIDE RECORDS SUMMARY | 2025-02-26 15:03 | XMS_ITS ---
Author Organization [facility] Address [address] [place] [address] Care Team Providers Care Shoe Folder Name Role Phone Albaro Machuca Primary Care Provider REASON FOR VISIT (IN OFFICE), Follow Up Encounters Encounter Location Date Provider Diagnosis [facility] [address] [place] [address] 02/26/20 Albaro Machuca PLAN OF TREATMENT Next Appt Details Provider Name:Albaro barrera, 05/27/2025 11:15:00 AM, [address] [place], [address],
== END ==
LOC: HO.CARD 13:48
PROVIDERS: PCP Internal Medicine; Visit Provider Internal Medicine
DX: I25.10 Atherosclerotic heart disease of native coronary artery without angina pectoris (principal)
CPT/HCPCS: 93306

== ENCOUNTER → 2025-02-26 13:51 | Outpatient (BNV) | payer MEDICARE, SELFPAY | PROVIDERS: PCP Internal Medicine; Visit Provider Internal Medicine Cardiovascular Disease | DX: I25.10 Atherosclerotic heart disease of native coronary artery without angina pectoris (principal); I35.0 Nonrheumatic aortic (valve) stenosis | CPT/HCPCS: 93306 ==

== ENCOUNTER 2025-02-27 10:09 | Outpatient (AMB) | payer MEDICARE, SELFPAY ==
--- NOTE | 2025-02-27 10:15 | A.OFFVIS_ITS ---
Vital Signs 02/27/25 10:18 Height 6 ft 1 in Weight 162 lb 4.163 oz BMI 21.4 BP 110/60 Blood Pressure Location Lt brachial Position Sitting Pulse 60 Pulse Source Monitor Intake Visit Reasons: 1 yr follow up Pediatric Nurse Practitioner Required: No Accompanied by: Daughter Allergies No Known Allergies Allergy (Verified 02/23/23 13:35) Medication List - Last Reconciled 02/27/25 by Juan David Barajas MD amitriptyline 50 mg PO BEDTIME apixaban (Eliquis) 5 mg PO BID atorvastatin 80 mg PO DAILY cholecalciferol (vitamin D3) 50 mcg PO DAILY fenofibrate 160 mg PO DAILY finasteride 5 mg PO DAILY cdpaucnrgnt-[id number]-zzxugbfl 100-62.5-25 mcg inhalation levalbuterol tartrate 45 mcg/actuation 2 puffs PO Q6H PRN metoprolol succinate ER 50 mg PO DAILY nitroglycerin 0.4 mg sublingual Q5M PRN HPI Comments Details: Ryan returns for follow-up. 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 He also has a history of coronary disease. In 2009, he underwent cardiac catheterization stenting of RCA with bare metal stent. In 2010, drug-eluting stents to LAD. He has been essentially free of angina for a long time. In 2019, he was admitted to [facility] with complaints of left-sided weakness when he was working on a ladder. Subsequently taken to [facility] where he was diagnosed to have a stroke with middle cerebral artery infarction. There is also a remote history of TIA with right-sided weakness that happened many years ago prior to this stroke. Then he was referred to us for evaluation of cardioembolic sources of stroke. After long discussion, he was put on anticoagulation that he is tolerating well. Overall, he states he feels fine from cardiac standpoint. No angina or in fact anything along those lines. 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 Mother No problems noted. Social History Alcohol intake: current Alcohol intake frequency: a few times a month Patient Tobacco Use Status: Former Tobacco user Review of Systems Const Denies chills, Denies fatigue, Denies fever(s), Denies frequent falls, Denies weakness, Denies weight gain and Denies weight loss ENT Denies dizziness Card Denies chest pain, Denies leg edema, Denies lightheadedness, Denies palpitations, Denies dyspnea and Denies dyspnea on exertion Resp Denies cough, Denies dyspnea and Denies dyspnea on exertion GI Denies hematochezia Musc Denies abnormal gait, Denies muscle weakness, Denies numbness, Denies radiating pain into limb and Denies tingling Neuro Denies abnormal gait, Denies dizziness, Denies frequent falls, Denies numbness, Denies tingling and Denies weakness Endo Denies fatigue and Denies palpitations Physical Exam Vital Signs: Last Vital Signs Pulse 60 02/27/25 10:18 BP 110/60 02/27/25 10:18 BMI result Body Mass Index 21.4 Const General: comfortable and no acute distress Orientation/consciousness: patient oriented x3 HEENT Other: Unremarkable Head: Yes normal to inspection Neck Neck: Yes normal visual inspection Chest Chest palpation & inspection: normal inspection of the chest Resp Auscultation: clear to auscultation bilaterally Cardio Palpation: normal PMI Heart sounds: S1 normal heart sound present, S2 normal heart sound present, no gallops, Murmur heart sound present systolic II/ and at the right sternal border and no rubs GI Palpation (GI): Soft to palpation Back/Spine/Pelvis Other: unremarkable Skin General skin exam: no rashes or lesions noted Neuro General: patient oriented x3 Extrem General: Yes normal to inspection Psych Mental Status: mental status grossly normal Office Procedures EKG Details: EKG with underlying sinus rhythm at 60/Min; possible left atrial enlargement; old inferior infarct; left ventricular hypertrophy; [place] [id number], Complete Assessment & Plan Assessment & Plan (1) Cerebrovascular accident, embolic: Code(s): I63.9 - Cerebral infarction, unspecified Category: Medical Qualifiers: Precerebral and cerebral artery: unspecified cerebral artery Qualified Code(s): I63.40 - Cerebral infarction due to embolism of unspecified cerebral artery (2) Atherosclerotic cardiovascular disease: Code(s): I25.10 - Atherosclerotic heart disease of [place] coronary artery without angina pectoris Category: Medical (3) Essential hypertension: Code(s): I10 - Essential (primary) hypertension Category: Medical (4) Other and unspecified hyperlipidemia: Code(s): E78.5 - Hyperlipidemia, unspecified Category: Medical Plan Pertinent studies reviewed. MRI of the brain with acute right MCA infarct. Chronic infarcts in the right basal ganglia and leo radiata as well as bilateral cerebellar hemispheres. No significant disease in the carotids. Echocardiogram with normal LVEF 60-65% no right to left shunting on bubble, mildly dilated aortic root but otherwise unremarkable. In the echocardiogram from yesterday, LVEF 60-65% with inferior wall motion abnormality which correlates with prior coronary history. There is mild aortic stenosis. 30 day event monitor without any obvious atrial fibrillation. Cardiac source of emboli could be related to atrial fibrillation versus aortic atheroma. He is on empiric anticoagulation for possibly atrial fibrillation. Overall, he stable on the current regimen including beta-blockers, statins, Eliquis without any active cardiac concerns. May continue the same. Follow up in one year. In the interim, we will call with any concerns. Discussed with daughter who came for appointment. Coding Level of Care Code Est Pt Level 4 (24597) Complex EM visit Add On G2211 Diagnoses Cerebrovascular accident (CVA) due to embolism of cerebral artery I63.40 Precerebral and cerebral artery: unspecified cerebral artery Atherosclerotic cardiovascular disease I25.10 Essential hypertension I10 Other and unspecified hyperlipidemia E78.5 CPT Codes EKG - CPT: 20045-[id number], Complete ([id number])
[2025-02-27 10:18] VITALS: BP 110/60; PULSE 60; BMI 21.4
--- OUTSIDE RECORDS SUMMARY | 2025-02-27 11:28 | XMS_ITS ---
Author Organization [facility], Address [address] [place] [address] Care Team Providers Care Auto Job Estimator Name Role Phone Caitlynholly Albaro Primary Care Provider [phone] ALLERGIES No Known Allergies REASON FOR VISIT [...] MG as directed Orally Active VITAL SIGNS Blood pressure systolic 124 mm Hg 11/26/19 25 Blood pressure diastolic 78 mm Hg 025 Heart Rate 80 /min 11/26/2024 Height 73 in 11/26/2024 Weight 158 lbs 11/26/2024 BMI 20.84 kg/m2 11/26/2024 Encounters Encounter Location Date Provider Diagnosis [email or web address] [address] 11/26/2024 Albaro Machuca Coronary artery dise ase involving [place] coronary artery of [place] heart without angina pectoris I25.10 ; Essential [...] Clinical Notes 11/26/2024 Coronary artery disease involving [place] coronary artery of [place] heart without angina pectoris (ICD-10 - I25.10) [...] system. There are likely to be multiple log grader inaccuracies despite chart review. PLAN OF [...] system. There are likely to be multiple log grader inaccuracies despite chart review. Next Appt Details Follow Up: 3 Months, Reason: Follow-up Provider Name:Albaro barrera, 05/27/2025 11:15:00 AM, [address] [place] [address], [phone], Progress Notes * Examination Category Sub-Category Detail Notes General Examination GENERAL APPEARANCE: in no ac jose distress, well developed, well nourished HEAD: normocephalic, [...]
--- OUTSIDE RECORDS SUMMARY | 2025-02-27 11:29 | XMS_ITS | Patient Health Record ---
Author Organization [facility], Address [address] [place] [address] Care Team Providers Care Depot Manager Name Role Phone Albaro Machuca Primary Care Provider RESULTS Component Value Reference Range Notes Lipid Panel-[id number] Reviewed date:11/14/2024 08:22:53 AM Interpretation: Performing Lab:[facility], [address] [facility], Phone - [phone], Director - MDJodry Notes/Report: Cholesterol, Total 115 100-199 mg/dL Triglycerides 66 0-149 mg/dL HDL Cholesterol 32 >39 mg/dL VLDL Cholesterol Peter 14 5-40 mg/dL LDL Chol Calc ([facility]) 69 0-99 mg/dL LDL Calc Comment: Comp. Metabolic Panel ([id number] Reviewed date:11/14/2024 08:22:53 AM Interpretation: Performing Lab:[facility], [address] [facility], Phone - [phone], Director - MDAmadeo Notes/Report: Glucose 86 70-99 [...] 44-121 IU/L AST (SGOT) 30 0-40 IU/L [id number] Reviewed date:11/14/2024 08:22:53 AM Interpretation: Performing Lab:[facility], [address], [place], Phone - [phone], Director - Slime Notes/Report: NT-proBNP 246 0-486 [...] every 0 hrs for 30 days Active Atorvastatin Calcium 80 MG TAKE 1 TABLET BY MOUTH EVERY DAY FOR 30 DAYS for 90 Active Aspir-81 81 MG 1 tablet Orally [...] every 4 hrs for 30 days Active Amitriptyline HCl 50 MG TAKE 1 TABLET BY MOUTH EVERYDAY AT BEDTIME for 90 Active traZODone HCl 150 MG TAKE 1 TABLET BY MO UT EVERYDAY AT BEDTIME for 90 Active Modafinil 100 MG 1 [...] (435.9) Active confirmed Transient ische flavio attack (370625684) Problem Vitamin D deficiency (E55.9) Active confirmed 03621740 Problem Loss of appetite (R63.0) Active confirmed 14805803 Problem Primary insomnia (F51.01) Active confirmed 5857278 Problem Mixed hyperlipidemia (E78.2) Active confirmed 221014213 Problem Irritable bowel syndrome without diarrhea (K58.9) Active confirmed 68488945 Problem Essential hypertension (I10) Active confirmed Essential hypertension (12114522) Problem Gastroesophageal reflux disease without esophagitis (K21.9) Active confirmed Gastroesophagea l reflux disease without esophagitis (713901998) Problem Moderate persistent asthma without complication (J45.40) Active confirmed 556752618 Problem Chronic obstructive pulmonary disease, unspecified COPD type (J44.9) Active confirmed 77770220 Problem Coronary artery disease involving [place] coronary artery of [place] heart without angina pectoris (I25.10) Active confirmed 6960548157061 Problem Benign non-nodular prostatic hyperplasia with lower urinary tract symptoms (N40.1) Active confirmed 466478962 Problem Transient cerebral ischemia, unspecified transient cerebral ischemia type (G45.9) Active confirmed 834146445 Problem Type 2 diabetes mellitus without complication, unspecified long-term insulin use status (E11.9) Active confirmed 32059230 Problem Hearing loss, unspecified hearing loss type, unspecified laterality (H91.90) Active confirmed 04636425 Problem Cerebrovascular accident (CVA) due to occlusion of right middle cerebral artery (I63.511) Active confirmed Cerebrovascular accident due to occlusion of right middle cerebral artery (disorder) (15211683336659837 ) VITAL SIGNS Heart Rate 80 /min 02/24/2025 Blood pressure diastolic 80 mm Hg 02/24/2025 Height 73 in 02/24/2025 Blood pressure systolic 120 mm Hg 02/24/2025 Weight 163 lbs 02/24/2025 BMI 21.50 kg/m2 02/24/2025 Encounters Encounter [facility] Date [facility] [address] [place] [address] [facility]/16/2024 Albaro Machuca Coronary artery dise ase involving [place] cro[place] coronary artery of [place] heart without angina pectoris I25.10 ; Essential [...] Fatigue, unspecified type R53.83 Albaro Machuca Md [address] [place] [address] [id number] 05/16/2024 Albaro Machuca [facility], [address] [address] 05/30/2024 Albaro Machuca Coronary artery dise ase involving [facility] cro[place] coronary artery of [place] heart without angina pectoris I25.10 ; Essential [...] laterality H91.90 and Fatigue, unspecified type R53.[address] [address] 09/12/2024 Albaro Machuca Coronary artery dise ase involving [place] cro[place] coronary artery of [place] heart without angina pectoris I25.10 ; Essential [...] of appetite R63.0 and Weight loss R63.[address] [address] 11/26/20[address] [address] 11/26/2024 Albaro Machuca Coronary artery dise ase involving [place] cro[place] coronary artery of [place] heart without angina pectoris I25.10 ; Essential [...] of appetite R63.0 and Weight loss R63.[address] [address] 02/24/2025 Albaro Machuca Coronary artery dise ase involving [place] cro[place] coronary artery of [place] cro[place] heart without angina pectoris I25.10 ; Essential [...] of appetite R63.0 and Weight loss R63.[address] [address] 02/25/2025 Albaro Machuca ASSESSMENTS Encounter Date Diagnosis Assessment Notes Treatment Notes Treatment Clinical Notes 05/16/2024 Coron[address] artery disease involving [place] coronary artery of [place] heart without angina pectoris (ICD-10 - I25.10) 05/16/2024 Essential hypertension (ICD-10 - I10) 09/12/2024 Coronary artery disease involving [place] cro[place] coronary artery of [place] croix heart without angina pectoris (ICD-10 - I25.10) 11/26/2024 Coronary artery disease involving [place] cro[place] coronary artery of [place] croix heart without angina pectoris (ICD-10 - I25.10) 05/30/2024 Coronary artery disease involving [place] cro[place] coronary artery of [place] croix heart without angina pectoris (ICD-10 - I25.10) 02/24/2025 Coronary artery disease involving [facility] cro[facility] coronary artery of [place] croix heart without angina pectoris (ICD-10 - I25.10) [...] system. There are likely to be multiple shoe repair supervisor inaccuracies despite chart review. 05/30/2024 Other This chart has been transcribed by a computerized dictation system. There are likely to be multiple shoe repair supervisor inaccuracies despite chart review. 09/12/2024 Other This chart has been transcribed by a computerized dictation system. There are likely to be multiple shoe repair supervisor inaccuracies despite chart review. 11/26/2024 Other This chart has been transcribed by a computerized dictation system. There are likely to be multiple shoe repair supervisor inaccuracies despite chart review. 02/24/2025 Other This chart has been transcribed by a computerized dictation system. There are likely to be multiple shoe repair supervisor inaccuracies despite chart review. PLAN OF TREATMENT [...] (TSH, FT4) 08/17/2023 URINALYSIS, COMPLETE 08/17/2023 Lipid Panel-[id number] 02/24/2025 Comp. Metabolic Panel [id number] 2024 [id number] 02/24/2025 CBC with Diff, Platelet, [id number] 01/29 Next Appt Details Provider Name:Albaro barrera, 05/27/2025 11:15:00 AM, [address] [place] [address], [phone], Insurance Providers Payer Name Payer Address Payer Phone Subscriber Number Group Number Insured Name Patient Relationship to Insured Coverage Start Date Coverage End Date [facility] [address] [place] [address] [phone] [id number] Ryan Ramirez Self - patient is the insured MEDICAL (GENERAL) HISTORY Medical History History ICD Code Bronchial Asthma IBS Hyperlipidemia BPH Raynaud's CAD TIA Recurrent Surgical History Surgery Date(Month/Year) Angioplasty with stenting Hospitalization History Reason Date(Month/Year) For above procedure and control of chron ic medical conditions
--- OUTSIDE RECORDS SUMMARY | 2025-02-27 11:29 | XMS_ITS | Clinical Summary ---
Author Organization [facility] Address [address] [place] [address] Phone Care Team Providers Care Doula Name Role Phone Albaro Machuca MD Primary [...] Medical Devices Not on file Care Teams Doula Relationship Specialty Start Date End Date Albaro Machuca MD PCP - General Internal Medicine 07/15/20 Additional Source Comments The information contained in this document represents components of the legal health record. It is not the complete legal health record.[facility]
--- OUTSIDE RECORDS SUMMARY | 2025-02-27 11:29 | XMS_ITS | Encounter Summary ---
Author Organization [facility] Address [address] [place] [address] Phone Care Team Providers Care Cane Burner Name Role Phone Albaro Machuca MD Primary Care Provider Reason for Referral * Speech Therapy (Routine) - Closed Specialty Diagnoses / Procedures Referred By Alessandra sanders Referred To Contact Speech Pathology System, Provider Not In, PhD Partners [facility] [address] [place] [address] [facility] [address] [place] [address] Referral ID Status Reason Start Date Expiration Date Visits Re quested Visits Authorized [id number] Closed 07/15/2020 07/15/2021 99 99 Encounter Details Date Type Department Care Team (Late st Contact Info) Description 07/15/2020 Transcribe Orders [facility] [address] [place] [address] Abdelrahman Machuca MD Social History Tobacco Use Types Packs/Day Years Used Date Smoking Tobacco: Never Assessed Sex and Gender Information Value Date Recorded Sex Assigned at Not on file Gender Identity Not on file Sexual Orientation Not on file documented as of this encounter Plan of Treatment Scheduled Referrals Name Type Priority Associated Diagnoses Order Schedule Ambulatory referral to [facility] Speech Language Pathology Outpatient Referral Routine Ordered: 07/15/2020 documented as of this encounter Visit Diagnoses Not on filedocumented in this encounter Care Teams Cane Burner Relationship Specialty Start Date End Date Albaro Machuca MD PCP - General Internal Medicine 07/15/20 documented as of this encounter Additional Source Comments The information contained in this document represents components of the legal health record. It is not the complete legal health record.[facility]
--- OUTSIDE RECORDS SUMMARY | 2025-02-27 11:29 | XMS_ITS ---
Author Organization [facility] Address [address] [place] [address] Care Team Providers Care Coater Brake Linings Name Role Phone Albaro Machuca Primary Care Provider [phone] REASON FOR VISIT (IN OFFICE), Follow Up Encounters Encounter Location Date Provider Diagnosis [facility] [address] [place] [address] 02/26/20 Albaro Machuca PLAN OF TREATMENT Next Appt Details Provider Name:Albaro barrera, 05/27/2025 11:15:00 AM, [address] [place], [address],
--- OUTSIDE RECORDS SUMMARY | 2025-02-27 11:29 | XMS_ITS ---
Author Organization Brigette Mckenzie, Address [address] [place] [address] Care Team Providers Care Correctional Supervisor Lieutenant Name Role Phone Caitlynholly Albaro Primary Care [...] 30 DAYS for 90 Active VITAL SIGNS Blood pressure systolic 120 mm Hg 02/25/20 25 Blood pressure diastolic 80 mm Hg 025 Heart Rate 80 /min 02/24/2025 Height 73 in 02/24/2025 Weight 163 lbs 02/24/2025 BMI 21.50 kg/m2 02/24/2025 Encounters Encounter Location Date Provider Diagnosis [address] [address] 02/24/2025 Albaro Machuca Coronary artery dise ase involving jackson coronary artery of jackson heart without angina pectoris I25.10 ; Essential [...] Clinical Notes 02/24/2025 Coronary artery disease involving jackson coronary artery of jackson heart without angina pectoris (ICD-10 - I25.10) [...] system. There are likely to be multiple security monitor inaccuracies despite chart review. PLAN OF TREATMENT [...] system. There are likely to be multiple security monitor inaccuracies despite chart review. Pending Test Test Name Order Date Lipid Panel-[id number] 02/24/2025 Comp. Metabolic Panel [id number] 2024 [id number] 02/24/2025 CBC with Diff, Platelet, [id number] 01/29 Next Appt Details Follow Up: 3 Months, Reason: Follow-up Provider Name:Albaro barrera, 05/27/2025 11:15:00 AM, [address] [place] [address], [phone], Progress Notes * Examination Category Sub-Category Detail [...]
== END 2025-02-27 10:35 | disposition home or self-care (01) ==
LOC: HO.HCS 10:09
PROVIDERS: PCP Internal Medicine; Visit Provider Internal Medicine
DX: I63.40 Cerebral infarction due to embolism of unspecified cerebral artery (principal); I25.10 Atherosclerotic heart disease of native coronary artery without angina pectoris; I10 Essential (primary) hypertension; E78.5 Hyperlipidemia, unspecified
CPT/HCPCS: 93010; 99214; G2211

== ENCOUNTER → 2025-02-27 10:09 | Outpatient (BNVA) | payer MEDICARE, SELFPAY | PROVIDERS: PCP Internal Medicine; Visit Provider Internal Medicine | DX: I63.40 Cerebral infarction due to embolism of unspecified cerebral artery (principal); I25.10 Atherosclerotic heart disease of native coronary artery without angina pectoris; I10 Essential (primary) hypertension; E78.5 Hyperlipidemia, unspecified; I51.7 Cardiomegaly; R94.31 Abnormal electrocardiogram [ECG] [EKG] | CPT/HCPCS: 93005; 99212 ==